=== PATIENT | female | born 1955 ===

== ENCOUNTER 2018-01-12 09:00 | Outpatient (RCR) | payer OTHER | END 2018-01-24 | disposition home or self-care (01) | LOC: PTY 09:00 | DX: M54.5 Low back pain (principal); M25.562 Pain in left knee ==

== ENCOUNTER 2018-01-31 14:00 | Outpatient (RCR) | payer OTHER | END 2018-02-24 | disposition home or self-care (01) | LOC: PTY 14:00 | DX: M54.5 Low back pain (principal); M25.562 Pain in left knee ==

== ENCOUNTER 2018-03-27 15:00 | Outpatient (RCR) | payer OTHER | END 2018-04-26 | disposition home or self-care (01) | LOC: PTY 15:00 | DX: M54.5 Low back pain (principal); M25.562 Pain in left knee ==